=== PATIENT | female | born 1940 ===

== ENCOUNTER 2016-09-27 06:12 | Day surgery (SDC) | payer OTHER, MEDICARE ==
--- NOTE | 2016-09-26 08:32 | HISTORY AND PHYSICAL ---
ADMITTED: 09/27/2016 HISTORY OF PRESENT ILLNESS: This is 76-year-old female with a chief complaint of a painful right foot. She has had 3 previous surgeries carried out on the right foot by local providers. The procedures went off without complication; however, she has developed a great toe that is drifting inward. They have proposed a third surgery and sought a second opinion. The initial proposal was for a fusion at the first MTP, which is a procedure of choice typically for failed soft tissue procedures addressing a hallux varus. She wanted to get a second opinion regarding the fusion. MEDICAL/SURGICAL HISTORY: Past medical history includes a history of cancer, insulin-dependent diabetes, kidney stones, pneumonia, hernias and anxiety. Surgical history includes a history of a hysterectomy, hernia, as well as the 3 previous foot surgeries. PRIMARY CARE PROVIDER: Dr. Andrew Morelos MEDICATIONS: 1. Tramadol 50 mg tablet 1 by mouth b.i.d. 2. Metformin 1000 mg 1 by mouth b.i.d. 3. NovoLog injections, inject 10 units subcutaneous at bedtime. 4. Levemir inject 20 units daily. ALLERGIES: 1. CODEINE. SOCIAL HISTORY: She is . Never smoked, does not drink. FAMILY HISTORY: Positive for diabetes, maternal and paternal. REVIEW OF SYSTEMS: A 10-point review of systems positive for diabetes and cancer. PHYSICAL EXAMINATION: GENERAL: The patient is alert and oriented x3. NECK: PERRLA. Normocephalic. HEART: Regular rate and rhythm. Normal S1 and S2. No murmurs or gallops. LUNGS: Clear to auscultation. No wheezing, rhonchi, or rales. ABDOMEN: Soft, nontender, no distention. Normal tones. LOWER EXTREMITY: Vascular: DP and PT pulses are palpable at +2/4, subpapillary venous plexus capillary refill within normal limits. Dermatologically well-healed incisions on the dorsum of the first MTP. NEUROLOGIC: Deep tendon reflexes and epicritic sensations are intact. Orthopedically, she has noted a varus deformity of the right first MTP that is intensified in stance and close kinetic change. Crepitus within the joint. LAB/IMAGING: There is a solid fixation of the first tarsometatarsal and second tarsometatarsal. Seems to have a Mitek type implant of the proximal phalanx laterally with some type of failed tendon transfer. IMPRESSION: 1. Recalcitrant hallux varus deformity. 2. Insulin-dependent diabetes. PLAN: The patient has consented for a hallux varus repair utilizing either an Arthrex TightRope or a new internal brace kit. She is well aware of the planned procedure, possibility of failure and necessity for a fusion. She has opted for the second attempt, first by myself for a soft tissue procedure to address the varus issue. Surgery is scheduled on an outpatient basis at [place] on 09/27/2016.
[~2016-09-27] VITALS: Ht 158.8 cm; Wt 68.4 kg
[~2016-09-27 06:12] MED LIST: LEVEMIR FL100 UNIT/M SC; METFORMIN HCL1000 MG PO; NOVOLOG PE100 UNITS/ SC; TRAMADOL HCL50 MG PO; ZESTRIL2.5 MG PO
--- NOTE | 2016-09-27 07:08 | DIAGNOSTIC IMAGING REPORT ---
PROCEDURE: XR CHEST 1 VIEW INDICATION: Preop, cough. TECHNIQUE: Portable AP view 06:16 a.m. COMPARISON: None. FINDINGS: 3 cm rounded opacity in the right lung base medially. Left pericardial fat pad. Heart and mediastinum are normal. Thorax is normal. IMPRESSION: 1. Medial right basilar opacity which probably represents a pericardial fat pad but mass is a consideration. Recommend two-view chest x-ray
[2016-09-27] MEDS ORDERED: ZOFRAN4 MG PO (09:24)
[2016-09-27] MEDS ORDERED: HYDROMORPHONE HC2 MG PO (09:24)
--- NOTE | 2016-09-27 09:26 | Provider's Discharge Care Plan ---
Problem, Goal, Plan Problem List 1. Other deformities of toe(s) (acquired), right foot Goals: Improve function Instructions: Follow up as directed
--- NOTE | 2016-09-27 09:26 | Provider's Discharge Care Plan ---
Problem, Goal, Plan Problem List 1. Other deformities of toe(s) (acquired), right foot Goals: Improve function Instructions: Follow up as directed
--- NOTE | 2016-09-27 21:22 | OPERATIVE REPORT ---
DATE OF SURGERY: 09/27/2016 SURGEON: Jagjit Noland DPM PREOPERATIVE DIAGNOSIS: 1. Hallux varus deformity, right first metatarsophalangeal POSTOPERATIVE DIAGNOSIS: 1. Hallux varus deformity, right first metatarsophalangeal PROCEDURE PERFORMED: 1. Hallux varus repair via a forefoot internal brace by Arthrex ANESTHESIA: General. HEMOSTASIS: Achieved by pneumatic ankle tourniquet inflated 250 mmHg pressure. TOURNIQUET TIME: Total tourniquet time 71 minutes. MATERIALS: Used 3-0 and 4-0 Polysorb, 4-0 Biosyn and 1 Arthrex internal brace kit with #2 FiberTape and 1 button plate. INJECTABLES: Injected 20 mL of 0.5% bupivacaine plain. COMPLICATIONS: None. CONDITION: The patient tolerated anesthesia and procedure well. INDICATIONS: The patient is a 76-year-old female who has had numerous surgical procedures carried out by other providers in the [facility], which resulted in a varus deformity of the first MTP of the right foot. Had suggested a first MTP arthrodesis, which was also suggested by her primary surgeon. However, states she did not want to do that, she would like to attempt to have a varus soft tissue procedure carried out. She is well aware of the possibility of failure and reoccurrence of the varus deformity. There are no contraindications to surgery at this time. SURGICAL TECHNIQUE: The patient brought in to the operating room, placed on operating table in a supine position. General anesthetic was administered. Pneumatic tourniquet was then placed above the right ankle. Right lower extremity was then prepped and draped in normal sterile fashion. An intraoperative pause was carried out with the positive identification, proper limb, consent form verified and confirmed. An Esmarch bandage was then utilized to exsanguinate the limb, tourniquet was then inflated. Attention was directed to procedure 1. Hallux varus repair, right first MTP: At this time, a curvilinear incision was made overlying the first MTP just distal to the joint, approximately midshaft of the proximal phalanx medially and then extending kind of proximal lateral. It was deepened by sharp and blunt dissection. A significant amount of scar tissue was identified. Extensor tendon was noted to be transferred and being adhered more to the lateral aspect of the base of the proximal phalanx. A K-wire was then driven perpendicular to the long axis of the proximal phalanx. An additional K-wire was then driven obliquely extending from the metaphyseal junction of the first metatarsal angulating, going from dorsal medial to plantar laterally just proximal to the articulating surface. It was over-drilled with a 2.5 drill bit. Then employing the Arthrex internal brace kit, the FiberTape was easily passed proximally. The bone was soft and we attempted to place a 3.8 PEEK implant, which did not seat well and actually then went distally intramedullary and it seated into the intramedullary portion of the proximal phalanx. Attempts were made to remove it. We were unable to retrieve it. At this time, tape was removed. A titanium button was then applied. Tape was then passed with the button affixed to the medial aspect of the proximal phalanx. Toe held in a rectus position. FiberTape was then easily seated proximally into the metatarsal medially. A rectus position was nearly achieved with the foot loaded. The area was flushed. The capsule was reinforced laterally with 3-0 Polysorb. Additional dorsally it was reapproximated with 3-0 Polysorb, subcutaneous with 4-0 and skin edges reapproximated in a running fashion with 4-0 Biosyn. The area was locally anesthetized with the aforementioned 20 mL of 0.5% bupivacaine plain. A compressive dressing was applied. Tourniquet was released with reactive hyperemia and good digital perfusion. The patient tolerated anesthesia, procedure well, left the operating room with vital signs stable. While in recovery, postoperative x-rays taken, as well as a postoperative Cam walker dispensed. Prognosis is guarded. She will be discharged home in stable condition.
== END 2016-09-27 11:57 | disposition home or self-care (01) ==
LOC: OR SRH 06:12 → SCU SRH 06:19 → OR SRH 07:30
PROVIDERS: Podiatrist
PROC: 0LU Tendons, Supplement (ICD-10-PCS; principal; 2016-09-27 07:30)
PROC: 0SNM0ZZ Release Right Metatarsal-Phalangeal Joint, Open Approach (ICD-10-PCS; principal; 2016-09-27 07:30)
DX: M20.31 Hallux varus (acquired), right foot (principal); E11.9 Type 2 diabetes mellitus without complications; Z79.4 Long term (current) use of insulin; I10 Essential (primary) hypertension
CPT/HCPCS: 29229; 29240; 50004; 60001; 70002; 80212; 80575; 83414; 83773; 84038; 84042; 85723; 90074; 90100; 95059